=== PATIENT | female | born 1965 ===

== ENCOUNTER 2017-03-15 05:30 | Inpatient (IN) ==
[2017-03-15] MEDS ORDERED: VANCOMYCIN INJ 1,000 MG in SODIUM CHLORIDE 0.9% 250 ML IV ONE (06:00)
[2017-03-15] MEDS ORDERED: ceFAZolin 1,000 MG VIAL ONE (06:09)
[2017-03-15] MEDS ORDERED: SODIUM CHLORIDE 0.9% 50 ML IV ONE (06:09)
[2017-03-15] MEDS ORDERED: VANCOMYCIN 1,000 MG VIAL ONE (06:09)
[2017-03-15 07:05] LABS: Albumin 3.4 G/DL (3.4-5.0); Bilirubin,Total 0.6 MG/DL (0.2-1.0); Calcium 8.9 MG/DL (8.5-10.1); Osmolality,Calculated 280.3 MOS/KG (273-304); Potassium 3.6 MMOL/L (3.5-5.1); Total Protein 7.8 G/DL (6.4-8.3)
[2017-03-15] MEDS ORDERED: diphenhydrAMINE CAP 25 MG CAPSULE PO PRN (07:31)
[2017-03-15] MEDS ORDERED: NALOXONE 0.4 MG/ML VIAL IV PRN (07:31)
[2017-03-15] MEDS ORDERED: MAGNESIUM HYDROXIDE SUSP 30 ML UDCUP PO PRN (07:31)
[2017-03-15] MEDS ORDERED: TEMAZEPAM 7.5 MG CAPSULE PO PRN (07:31)
[2017-03-15] MEDS ORDERED: HYDROmorphone 2 MG/1 ML VIAL IV PRN ×2 (07:31→11:51)
[2017-03-15] MEDS ORDERED: PROMETHAZINE 25 MG/1 ML VIAL IM PRN (07:31)
[2017-03-15] MEDS ORDERED: LACTULOSE 20 GM/30 ML UDCUP PO PRN (07:31)
[2017-03-15] MEDS ORDERED: ONDANSETRON 4 MG/2 ML VIAL IV PRN ×2 (07:31→11:51)
[2017-03-15] MEDS ORDERED: BISACODYL 10 MG SUPP RECTAL PRN (07:31)
[2017-03-15] MEDS ORDERED: CYCLOBENZAPRINE 10 MG TABLET PO PRN (07:34)
[2017-03-15] MEDS ORDERED: FAMOTIDINE 20 MG TABLET ONE (07:36)
[2017-03-15] MEDS ORDERED: DIAZEPAM 5 MG TABLET ONE (07:36)
[2017-03-15] MEDS ORDERED: DIAZEPAM 5 MG TABLET PO STA (07:40)
[2017-03-15] MEDS ORDERED: FAMOTIDINE 20 MG TABLET PO STA (07:41)
[2017-03-15] MEDS: LACTATED RINGERS 1,000 ML IV SCH (08:01)
[2017-03-15] MEDS ORDERED: TRANEXAMIC ACID 1,000 MG/10 ML VIAL IV ONE (10:36)
[2017-03-15] MEDS: DOCUSATE SODIUM 100 MG CAPSULE PO SCH ×2 (10:43→21:30)
[2017-03-15] MEDS: LISINOPRIL 5 MG TABLET PO SCH (10:43)
[2017-03-15] MEDS: MELOXICAM 7.5 MG TABLET PO SCH (10:44)
[2017-03-15] MEDS ORDERED: ROPIVACAINE 0.5% 30 ML VIAL ONE (10:53)
[2017-03-15] MEDS ORDERED: PROPOFOL 200 MG/20 ML VIAL IV ONE (11:50)
[2017-03-15] MEDS ORDERED: SODIUM CHLORIDE 0.9% 250 ML IV ONE (11:51)
[2017-03-15] MEDS ORDERED: GLYCOPYRROLATE 0.4 MG/2 ML VIAL ONE (11:51)
[2017-03-15] MEDS ORDERED: ONDANSETRON 4 MG/2 ML VIAL ONE (11:51)
[2017-03-15] MEDS ORDERED: ACETAMINOPHEN 1,000 MG/100 ML VIAL IV ONE (11:51)
[2017-03-15] MEDS ORDERED: MIDAZOLAM 2 MG/2 ML VIAL ONE (11:51)
[2017-03-15] MEDS ORDERED: fentaNYL 100 MCG/2 ML VIAL ONE (11:51)
[2017-03-15] MEDS ORDERED: SODIUM CHLORIDE 0.9% 100 ML IV ONE (11:51)
[2017-03-15] MEDS ORDERED: LACTATED RINGERS 1,000 ML IV SCH (12:00)
[2017-03-15] MEDS: HYDROmorphone PCA 30 MG/30 ML SYRINGE IV SCH (13:30)
[2017-03-15] MEDS: ceFAZolin 2,000 MG in PREMIX 1 EACH IV SCH ×2 (13:30→21:30)
[2017-03-15] MEDS: MULTIVITAMIN (CENTRUM) TABLET PO SCH (13:49)
[2017-03-15] MEDS: POTASSIUM CHLORIDE 10 MEQ TABLET PO SCH (13:49)
[2017-03-15] MEDS: FONDAPARINUX 2.5 MG/0.5 ML SYRINGE SUBCUT SCH (23:35)
[2017-03-16 04:59] LABS: Basophils % 0.2 % (0.0-0.8); Eosinophils % 0.1 % (0.00-10.9); Hematocrit 36.6 VOL% (35.7-47.0); Hemoglobin 12.3 GM/DL (12.0-16.0); Immature Granulocytes % 0.6 %; Immature Granulocytes Absolute 0.08 #; Lymphocytes # 1.6 10*3/uL (1.4-4.0); Lymphocytes % 12.7 % (21.3-54.2); Mean Corpuscular HGB Conc 33.6 GM/DL (32-36); Mean Corpuscular Hemoglobin 31 PG (27-34); Mean Corpuscular Volume 90.8 FL (87-102); Mean Platelet Volume 10.5 FL (9.6-12.0); Monocytes % 7.5 % (1.7-12.7); Neutrophils # 10.1 10*3/uL (1.4-7.4); Neutrophils % 78.9 % (38.7-73.9); Platelet Count 298 T/CUMM (130-400); Red Blood Count 4.03 MC/CUMM (3.8-5.5); Red Cell Distribution Width 13.2 % (9.3-17.3); White Blood Count 12.8 T/CUMM (4-12)
[2017-03-16 05:38] LABS: Calcium 8.3 MG/DL (8.5-10.1); Potassium 3.7 MMOL/L (3.5-5.1)
[2017-03-16] MEDS: LACTATED RINGERS 1,000 ML IV SCH ×3 (07:55→15:38)
[2017-03-16] MEDS: HYDROmorphone PCA 30 MG/30 ML SYRINGE IV SCH (07:55)
[2017-03-16] MEDS: DOCUSATE SODIUM 100 MG CAPSULE PO SCH ×2 (08:09→21:21)
[2017-03-16] MEDS: MULTIVITAMIN (CENTRUM) TABLET PO SCH (08:09)
[2017-03-16] MEDS: MELOXICAM 7.5 MG TABLET PO SCH (08:09)
[2017-03-16] MEDS: LISINOPRIL 5 MG TABLET PO SCH (08:10)
[2017-03-16] MEDS: POTASSIUM CHLORIDE 10 MEQ TABLET PO SCH (08:10)
[2017-03-16] MEDS: FONDAPARINUX 2.5 MG/0.5 ML SYRINGE SUBCUT SCH (22:21)
[2017-03-17] MEDS: LACTATED RINGERS 1,000 ML IV SCH (03:58)
[2017-03-17 09:26] LABS: Basophils % 0.3 % (0.0-0.8); Eosinophils # 0.1 10*3/uL (0.0-0.87); Eosinophils % 0.5 % (0.00-10.9); Hematocrit 36.1 VOL% (35.7-47.0); Hemoglobin 12.4 GM/DL (12.0-16.0); Immature Granulocytes % 1.1 %; Immature Granulocytes Absolute 0.14 #; Lymphocytes # 2.4 10*3/uL (1.4-4.0); Lymphocytes % 18.3 % (21.3-54.2); Mean Corpuscular HGB Conc 34.3 GM/DL (32-36); Mean Corpuscular Hemoglobin 31 PG (27-34); Mean Platelet Volume 10.4 FL (9.6-12.0); Monocytes # 0.8 10*3/uL (0.11-0.8); Monocytes % 6.3 % (1.7-12.7); Neutrophils # 9.6 10*3/uL (1.4-7.4); Neutrophils % 73.5 % (38.7-73.9); Platelet Count 319 T/CUMM (130-400); Red Blood Count 4.01 MC/CUMM (3.8-5.5); Red Cell Distribution Width 13.3 % (9.3-17.3); White Blood Count 13.1 T/CUMM (4-12)
[2017-03-17] MEDS: MELOXICAM 7.5 MG TABLET PO SCH (09:41)
[2017-03-17] MEDS: LISINOPRIL 5 MG TABLET PO SCH (09:42)
[2017-03-17] MEDS: DOCUSATE SODIUM 100 MG CAPSULE PO SCH ×2 (09:42→20:15)
[2017-03-17] MEDS: MULTIVITAMIN (CENTRUM) TABLET PO SCH (09:42)
[2017-03-17] MEDS: POTASSIUM CHLORIDE 10 MEQ TABLET PO SCH (09:43)
[2017-03-17 13:25] LABS: Apearance,Urine CLEAR (Clear); Bilirubin,Urine Negative (Negative); Blood, Urine Negative (Negative); Glucose,Urine (UA) Negative (Negative); Ketones,Urine Negative (Negative); Mucus,Urine Occasional /LPF (Occasional); Nitrite,Urine Negative (Negative); Protein,Urine Negative; RBC,Urine <1 /HPF (0-4); Squamous Epithelial Cell,Urine Occasional /HPF (0-10); Urine Color Yellow (Yellow); Urine Specific Gravity 1.006 (1.001-1.035); Urine Urobilinogen < 2.0 EU/DL (0.2-1.0); WBC,Urine 1 /HPF (0-6)
[2017-03-17] MEDS: HYDROmorphone PCA 30 MG/30 ML SYRINGE IV SCH (18:49)
[2017-03-17] MEDS: FONDAPARINUX 2.5 MG/0.5 ML SYRINGE SUBCUT SCH (22:51)
[2017-03-18 03:24] LABS: Basophils # 0.1 10*3/uL (0.0-0.2); Basophils % 0.4 % (0.0-0.8); Eosinophils # 0.2 10*3/uL (0.0-0.87); Eosinophils % 1.3 % (0.00-10.9); Hematocrit 33.6 VOL% (35.7-47.0); Hemoglobin 11.2 GM/DL (12.0-16.0); Immature Granulocytes % 1.3 %; Immature Granulocytes Absolute 0.17 #; Lymphocytes # 3.4 10*3/uL (1.4-4.0); Lymphocytes % 26.7 % (21.3-54.2); Mean Corpuscular HGB Conc 33.3 GM/DL (32-36); Mean Corpuscular Hemoglobin 30 PG (27-34); Mean Corpuscular Volume 90.8 FL (87-102); Mean Platelet Volume 10.7 FL (9.6-12.0); Monocytes % 8.1 % (1.7-12.7); Neutrophils # 7.9 10*3/uL (1.4-7.4); Neutrophils % 62.2 % (38.7-73.9); Platelet Count 282 T/CUMM (130-400); Red Cell Distribution Width 13.4 % (9.3-17.3); White Blood Count 12.6 T/CUMM (4-12)
[2017-03-18] MEDS: DOCUSATE SODIUM 100 MG CAPSULE PO SCH ×2 (09:23→20:13)
[2017-03-18] MEDS: MELOXICAM 7.5 MG TABLET PO SCH (09:23)
[2017-03-18] MEDS: MULTIVITAMIN (CENTRUM) TABLET PO SCH (09:24)
[2017-03-18] MEDS: LISINOPRIL 5 MG TABLET PO SCH (09:24)
[2017-03-18] MEDS: POTASSIUM CHLORIDE 10 MEQ TABLET PO SCH (09:25)
[2017-03-18] MEDS: FONDAPARINUX 2.5 MG/0.5 ML SYRINGE SUBCUT SCH (21:12)
[2017-03-19 06:32] LABS: Basophils % 0.3 % (0.0-0.8); Eosinophils # 0.3 10*3/uL (0.0-0.87); Eosinophils % 2.4 % (0.00-10.9); Hematocrit 33.4 VOL% (35.7-47.0); Hemoglobin 11.2 GM/DL (12.0-16.0); Immature Granulocytes % 1.2 %; Immature Granulocytes Absolute 0.13 #; Lymphocytes # 2.8 10*3/uL (1.4-4.0); Lymphocytes % 26.4 % (21.3-54.2); Mean Corpuscular HGB Conc 33.5 GM/DL (32-36); Mean Corpuscular Hemoglobin 31 PG (27-34); Mean Corpuscular Volume 91.3 FL (87-102); Mean Platelet Volume 10.6 FL (9.6-12.0); Monocytes # 0.7 10*3/uL (0.11-0.8); Neutrophils # 6.6 10*3/uL (1.4-7.4); Neutrophils % 62.7 % (38.7-73.9); Platelet Count 326 T/CUMM (130-400); Red Blood Count 3.66 MC/CUMM (3.8-5.5); Red Cell Distribution Width 13.3 % (9.3-17.3); White Blood Count 10.5 T/CUMM (4-12)
[2017-03-19] MEDS: DOCUSATE SODIUM 100 MG CAPSULE PO SCH ×2 (10:02→20:31)
[2017-03-19] MEDS: MULTIVITAMIN (CENTRUM) TABLET PO SCH (10:02)
[2017-03-19] MEDS: MELOXICAM 7.5 MG TABLET PO SCH (10:02)
[2017-03-19] MEDS: LISINOPRIL 5 MG TABLET PO SCH (10:03)
[2017-03-19] MEDS: POTASSIUM CHLORIDE 10 MEQ TABLET PO SCH (10:03)
[2017-03-19] MEDS: FONDAPARINUX 2.5 MG/0.5 ML SYRINGE SUBCUT SCH (23:06)
[2017-03-20 06:52] LABS: Basophils % 0.3 % (0.0-0.8); Eosinophils # 0.2 10*3/uL (0.0-0.87); Eosinophils % 2.5 % (0.00-10.9); Hematocrit 33.3 VOL% (35.7-47.0); Hemoglobin 11.2 GM/DL (12.0-16.0); Immature Granulocytes % 0.8 %; Immature Granulocytes Absolute 0.07 #; Lymphocytes # 2.5 10*3/uL (1.4-4.0); Lymphocytes % 27.9 % (21.3-54.2); Mean Corpuscular HGB Conc 33.6 GM/DL (32-36); Mean Corpuscular Hemoglobin 31 PG (27-34); Mean Platelet Volume 10.2 FL (9.6-12.0); Monocytes # 0.7 10*3/uL (0.11-0.8); Neutrophils # 5.3 10*3/uL (1.4-7.4); Neutrophils % 60.5 % (38.7-73.9); Platelet Count 350 T/CUMM (130-400); Red Blood Count 3.62 MC/CUMM (3.8-5.5); Red Cell Distribution Width 13.5 % (9.3-17.3); White Blood Count 8.8 T/CUMM (4-12)
[2017-03-20] MEDS: MELOXICAM 7.5 MG TABLET PO SCH (08:16)
[2017-03-20] MEDS: MULTIVITAMIN (CENTRUM) TABLET PO SCH (08:16)
[2017-03-20] MEDS: LISINOPRIL 5 MG TABLET PO SCH (08:17)
[2017-03-20] MEDS: POTASSIUM CHLORIDE 10 MEQ TABLET PO SCH (08:17)
[2017-03-20] MEDS: DOCUSATE SODIUM 100 MG CAPSULE PO SCH (08:17)
[2017-03-20 11:21] VITALS: BP 144/82
== END 2017-03-20 12:05 | disposition home or self-care (01) | DRG 470 ==
LOC: N.OR 05:30 → N.SDSINP 05:51 → N.3E 10:13 → N.SDSINP 10:13 → N.3E 10:28
PROVIDERS: ADMIT Orthopaedic Surgery; ATTEND Orthopaedic Surgery

== ENCOUNTER 2021-10-03 12:33 | Inpatient (IN) ==
[2021-10-03] MEDS ORDERED: ONDANSETRON 4 MG/2 ML VIAL IV STA (13:04)
[2021-10-03] MEDS ORDERED: SODIUM CHLORIDE 0.9% 1,000 ML IV STA (13:04)
[2021-10-03] MEDS ORDERED: HYDROmorphone 1 MG/1 ML SYRINGE IV STA (13:04)
[2021-10-03 13:45] LABS: Alanine Aminotransferase 80 U/L (13-56); Albumin 3.6 G/DL (3.4-5.0); Alkaline Phosphatase 104 U/L (45-117); Aspartate Amino Transferase 63 U/L (0-37); Blood Urea Nitrogen 7 MG/DL (7-18); Calcium 8.4 MG/DL (8.5-10.1); Carbon Dioxide 26 MMOL/L (21-32); Chloride 105 MMOL/L (98-107); Glucose 157 MG/DL (74-106); Osmolality,Calculated 281.3 MOS/KG (273-304); Potassium 3.3 MMOL/L (3.5-5.1); Sodium 141 MMOL/L (136-145); Total Protein 9.2 G/DL (6.4-8.2)
[2021-10-03 13:54] LABS: Basophils % 0.3 % (0.0-0.8); Hematocrit 40.5 VOL% (35.7-47.0); Hemoglobin 13.5 GM/DL (12.0-16.0); Immature Granulocytes Absolute 0.12 #; Lymphocytes % 8.5 % (21.3-54.2); Mean Corpuscular HGB Conc 33.3 GM/DL (32-36); Mean Corpuscular Volume 100.2 FL (87-102); Mean Platelet Volume 9.7 FL (9.6-12.0); Monocytes # 0.6 10*3/uL (0.11-0.8); Monocytes % 5.1 % (1.7-12.7); Neutrophils % 85.1 % (38.7-73.9); Platelet Count 315 T/CUMM (130-400); Red Blood Count 4.04 MC/CUMM (3.8-5.5); Red Cell Distribution Width 14.6 % (9.3-17.3); White Blood Count 11.5 T/CUMM (4-12)
[2021-10-03] MEDS ORDERED: ACETAMINOPHEN 325 MG TABLET PO PRN (14:17)
[2021-10-03] MEDS ORDERED: ONDANSETRON 4 MG/2 ML VIAL IV PRN (14:17)
[2021-10-03] MEDS: LACTATED RINGERS 1,000 ML IV SCH (14:50)
[2021-10-03] MEDS ORDERED: hydrALAZINE 20 MG/1 ML VIAL IV PRN (14:54)
[2021-10-03] MEDS: POTASSIUM CHLORIDE RIDER 10 MEQ/100 ML PREMIX IV SCH ×4 (15:24→19:58)
[2021-10-03 18:21] LABS: Hepatitis B Core IgM Quant 0.14 Index; Hepatitis B Surface Ag Quant < 0.10 Index; Hepatitis B Surface Ag Result Non-Reactive (NonReactive); Hepatitis C Virus Ab Result Non-Reactive (NonReactive)
[2021-10-03] MEDS: MORPHINE 2 MG/1 ML SYRINGE IV PRN (21:47)
[2021-10-04] MEDS: LACTATED RINGERS 1,000 ML IV SCH ×3 (01:13→20:29)
[2021-10-04] MEDS: MORPHINE 2 MG/1 ML SYRINGE IV PRN ×4 (01:16→20:29)
[2021-10-04 06:15] LABS: Basophils % 0.3 % (0.0-0.8); Eosinophils % 0.2 % (0.00-10.9); Hematocrit 38.2 VOL% (35.7-47.0); Hemoglobin 12.6 GM/DL (12.0-16.0); Immature Granulocytes % 0.6 %; Immature Granulocytes Absolute 0.07 #; Lymphocytes # 2.3 10*3/uL (1.4-4.0); Lymphocytes % 20.1 % (21.3-54.2); Mean Corpuscular Volume 102.7 FL (87-102); Mean Platelet Volume 10.2 FL (9.6-12.0); Monocytes % 8.4 % (1.7-12.7); Neutrophils % 70.4 % (38.7-73.9); Platelet Count 321 T/CUMM (130-400); Red Blood Count 3.72 MC/CUMM (3.8-5.5); Red Cell Distribution Width 14.9 % (9.3-17.3); White Blood Count 11.6 T/CUMM (4-12)
[2021-10-04] MEDS ORDERED: PANTOPRAZOLE 40 MG TABLET PO SCH (06:30)
[2021-10-04 06:35] LABS: Albumin 2.8 G/DL (3.4-5.0); Bilirubin,Total 0.8 MG/DL (0.20-1.00); Calcium 8.2 MG/DL (8.5-10.1); Osmolality,Calculated 278.4 MOS/KG (273-304); Potassium 3.1 MMOL/L (3.5-5.1); Total Protein 7.8 G/DL (6.4-8.2)
[2021-10-04] MEDS: POTASSIUM CHLORIDE RIDER 10 MEQ/100 ML PREMIX IV SCH ×6 (12:26→19:36)
[2021-10-04] MEDS: PANTOPRAZOLE 40 MG VIAL IV SCH (12:32)
[2021-10-05] MEDS: LACTATED RINGERS 1,000 ML IV SCH ×2 (00:27→06:53)
[2021-10-05] MEDS: MORPHINE 2 MG/1 ML SYRINGE IV PRN ×2 (03:44→14:31)
[2021-10-05 05:12] LABS: Basophils % 0.3 % (0.0-0.8); Eosinophils % 0.4 % (0.00-10.9); Hematocrit 37.4 VOL% (35.7-47.0); Hemoglobin 12.2 GM/DL (12.0-16.0); Immature Granulocytes % 0.5 %; Immature Granulocytes Absolute 0.05 #; Lymphocytes # 1.8 10*3/uL (1.4-4.0); Lymphocytes % 18.9 % (21.3-54.2); Mean Corpuscular HGB Conc 32.6 GM/DL (32-36); Mean Corpuscular Volume 104.2 FL (87-102); Mean Platelet Volume 10.1 FL (9.6-12.0); Monocytes # 0.9 10*3/uL (0.11-0.8); Monocytes % 9.9 % (1.7-12.7); Platelet Count 264 T/CUMM (130-400); Red Blood Count 3.59 MC/CUMM (3.8-5.5); Red Cell Distribution Width 14.5 % (9.3-17.3); White Blood Count 9.3 T/CUMM (4-12)
[2021-10-05 05:35] LABS: Risk Ratio 3.15; VLDL Cholesterol 20.4 MG/DL
[2021-10-05 05:36] LABS: Calcium 8.3 MG/DL (8.5-10.1); Osmolality,Calculated 275.5 MOS/KG (273-304); Potassium 3.4 MMOL/L (3.5-5.1)
[2021-10-05] MEDS: PANTOPRAZOLE 40 MG VIAL IV SCH (08:18)
[2021-10-05] MEDS: POTASSIUM CHLORIDE INJ 40 MEQ in LACTATED RINGERS 1,000 ML IV SCH ×2 (11:00→19:27)
[2021-10-05] MEDS ORDERED: ENOXAPARIN 40 MG/0.4 ML SYRINGE SUBCUT ONE (12:00)
[2021-10-06] MEDS: POTASSIUM CHLORIDE INJ 40 MEQ in LACTATED RINGERS 1,000 ML IV SCH (03:10)
[2021-10-06 05:59] LABS: Basophils % 0.3 % (0.0-0.8); Eosinophils % 0.4 % (0.00-10.9); Hematocrit 36.7 VOL% (35.7-47.0); Hemoglobin 12.1 GM/DL (12.0-16.0); Immature Granulocytes % 0.8 %; Immature Granulocytes Absolute 0.06 #; Lymphocytes # 1.8 10*3/uL (1.4-4.0); Lymphocytes % 22.6 % (21.3-54.2); Mean Corpuscular Volume 102.2 FL (87-102); Mean Platelet Volume 9.7 FL (9.6-12.0); Monocytes # 0.6 10*3/uL (0.11-0.8); Monocytes % 7.4 % (1.7-12.7); Neutrophils % 68.5 % (38.7-73.9); Platelet Count 260 T/CUMM (130-400); Red Blood Count 3.59 MC/CUMM (3.8-5.5); Red Cell Distribution Width 13.9 % (9.3-17.3); White Blood Count 7.7 T/CUMM (4-12)
[2021-10-06 06:22] LABS: Calcium 8.5 MG/DL (8.5-10.1); Osmolality,Calculated 276.4 MOS/KG (273-304); Potassium 3.9 MMOL/L (3.5-5.1)
[2021-10-06] MEDS: ENOXAPARIN 40 MG/0.4 ML SYRINGE SUBCUT SCH (09:09)
[2021-10-06] MEDS: PANTOPRAZOLE 40 MG VIAL IV SCH (09:09)
[2021-10-06] MEDS: LACTATED RINGERS 1,000 ML IV SCH ×2 (09:10→18:15)
[2021-10-07 06:10] LABS: Basophils % 0.1 % (0.0-0.8); Eosinophils # 0.1 10*3/uL (0.0-0.87); Eosinophils % 1.1 % (0.00-10.9); Hematocrit 37.3 VOL% (35.7-47.0); Hemoglobin 12.6 GM/DL (12.0-16.0); Immature Granulocytes % 0.8 %; Immature Granulocytes Absolute 0.07 #; Lymphocytes % 23.5 % (21.3-54.2); Mean Corpuscular HGB Conc 33.8 GM/DL (32-36); Mean Corpuscular Volume 101.9 FL (87-102); Mean Platelet Volume 10.1 FL (9.6-12.0); Monocytes # 0.6 10*3/uL (0.11-0.8); Monocytes % 7.4 % (1.7-12.7); Neutrophils % 67.1 % (38.7-73.9); Platelet Count 314 T/CUMM (130-400); Red Blood Count 3.66 MC/CUMM (3.8-5.5); White Blood Count 8.5 T/CUMM (4-12)
[2021-10-07] MEDS: LACTATED RINGERS 1,000 ML IV SCH (06:12)
[2021-10-07 06:30] LABS: Calcium 9.4 MG/DL (8.5-10.1); Osmolality,Calculated 273.5 MOS/KG (273-304); Potassium 3.5 MMOL/L (3.5-5.1)
[2021-10-07] MEDS ORDERED: GLUCAGON 1 MG VIAL IM PRN (09:12)
[2021-10-07] MEDS ORDERED: DEXTROSE 10% 250 ML BAG IV PRN (09:12)
[2021-10-07] MEDS: ENOXAPARIN 40 MG/0.4 ML SYRINGE SUBCUT SCH (09:25)
[2021-10-07] MEDS: PANTOPRAZOLE 40 MG VIAL IV SCH (09:26)
[2021-10-07 15:38] VITALS: BP 146/82
[2021-10-07] MEDS ORDERED: ATORVASTATIN 40 MG TABLET PO SCH (21:00)
== END 2021-10-07 18:04 | disposition home or self-care (01) | DRG 389 ==
LOC: N.ED 12:33 → SUATTDRO 14:17 → N.EDINP 14:17 → N.3E 16:28
PROVIDERS: ADMIT Surgery; ATTEND Surgery